=== PATIENT | female | born 1975 | race Two or more races ===

== ENCOUNTER 2025-02-19 15:19 | Emergency (ER) | payer OTHER ==
[~2025-02-19] VITALS: Ht 170.2 cm; Wt 89.8 kg
[2025-02-19] MEDS ORDERED: HALOPERIDOL LACTATE INJ 5 MG/ML VIAL IV ONE (16:00)
[2025-02-19 16:15] LABS: PLATELET COUNT (AUTO) 232 K/uL (150-450); RED BLOOD CELL COUNT(AUTO) 4.99 MIL/uL (4.0-5.2); RED CELL DISTRIBUTION WIDTH 13.6 % (11.5-15.0); WHITE BLOOD COUNT (AUTO) 12.4 K/uL (4.3-11.0)
[2025-02-19 16:22] LABS: ALCOHOL, BLOOD < 3 mg/dL (0-10); ASPARTATE AMINOTRANSFERASE 20 U/L (15-37); CALCIUM, SERUM 8.5 mg/dL (8.5-10.1); CREATININE 1.2 mg/dL (0.6-1.3); SODIUM SERUM 138 mmol/L (136-145); TOTAL PROTEIN, SERUM 6.8 g/dL (6.4-8.2); UREA NITROGEN, BLOOD 17 mg/dL (7-18)
[2025-02-19] MEDS: IV NS 0.9% 1,000 ML IV STA (16:22)
[2025-02-19 16:39] LABS: PREGNANCY TEST URINE QUAL NEGATIVE (NEGATIVE)
[2025-02-19 16:43] LABS: AMPHETAMINE, URINE NEGATIVE (NEGATIVE); BARBITURATE, URINE NEGATIVE (NEGATIVE); BENZODIAZEPINE, URINE NEGATIVE (NEGATIVE); CANNABINOID, URINE POSITIVE (NEGATIVE); COCCAINE, URINE NEGATIVE (NEGATIVE); OPIATE, URINE NEGATIVE (NEGATIVE)
[2025-02-19] MEDS: POTASSIUM CHLORIDE 20 MEQ TAB.PRT.SR PO ONE (17:46)
[2025-02-19 21:31] VITALS: BP 120/63; TEMP 98; O2SAT 96
== END 2025-02-19 21:32 | disposition home or self-care (01) ==
LOC: ER 15:25
DX: F12.929 Cannabis use, unspecified with intoxication, unspecified (principal); E87.6 Hypokalemia; R06.02 Shortness of breath; I10 Essential (primary) hypertension; E11.9 Type 2 diabetes mellitus without complications; Z79.899 Other long term (current) drug therapy
CPT/HCPCS: 99285; 96360; 93005; 71045; 85025; 80048; 80076; 83735; 84703; 36415; 84443; 84484 ×2; 83880; 80320; 80307; J7030; G0480